=== PATIENT | female | born 1990 | race Caucasian/White ===

== ENCOUNTER 2017-08-22 08:09 | Observation (INO) | payer BC, OTHER ==
[2017-08-22] VITALS (7 sets, daily range): BP systolic 109–139; BP diastolic 65–91; PULSE 73–112; RESP 12–18; TEMP 97.7–98.6; O2SAT 97–98
[~2017-08-22] VITALS: Ht 175.3 cm; Wt 65.0 kg
[~2017-08-22 08:09] MED LIST: LEXA20TA PO; PHEN12.5 PO; SERO50TA4 PO; Z.0.BCPILL PO
[2017-08-22] MEDS ORDERED: SODIUM CHLORIDE 0.9% FLUSH 10 ML FLUSH IVF PRN (08:45)
[2017-08-22] MEDS ORDERED: SODIUM CHLOR 0.9% 1000 ML INJ 1,000 ML IV ONE (08:45)
--- NOTE | 2017-08-22 08:53 | PD ---
HPI Chief Complaint: OD/ Ingestion Time Seen by Provider: 08:40 Travel History International Travel<30 days: No Contact w/Intl Traveler<30days: No Traveled to known affect area: No History of Present Illness HPI 26-year-old female states that she was drinking last night and relapsed on heroin. She states that she was told that she had received medication because she almost . She states she was not trying to hurt herself. She states she has not used for 4 years. She denies any other concurrent complaints at this time other than feeling a little drowsy. History is limited given patient does not recall full event. PFSH Past Medical History Narrative Medical Medical history confirmed with patient Depression: Yes Cardiovascular Problems: Yes Diminished Hearing: No Gastrointestinal Disorders: Yes (stomach pain of unknown origin) Headaches: Yes Hepatitis: Yes (C, treated) Immunizations Current: Yes Tetanus Vaccination: Unknown ?: Not LMP: 08/08/17 Menopausal: No : 0 Past Surgical History Narrative Surgical Surgical history confirmed with patient Oral Surgery: Yes (WISDOM TEETH) Tonsillectomy: Yes Social History Narrative Social History Social history confirmed with patient Alcohol Use: Yes (daily, 6 beers) Tobacco Use: No Substance Use: Yes (heroin, cocaine) Allergies-Medications (Allergen,Severity, Reaction): Coded Allergies: penicillin G (Unverified Allergy, Mild, HIVES, VOMITING, 10/19/16) Reported Meds & Prescriptions Reported Meds & Active Scripts Active Phenergan (Promethazine HCl) 12.5 Mg Tab 12.5 Mg PO Q6H PRN Reported Seroquel XR 50 mg (Quetiapine Fumarate) 50 Mg Tab 50 Mg PO DAILY Control Pills (Miscellaneous Medication) Tab 1 Tab PO DAILY Lexapro (Escitalopram Oxalate) 20 Mg Tab 20 Mg PO DAILY Review of Systems ROS Limitations: Other: (Drowsy) Except as stated in HPI: all other systems reviewed are Neg Physical Exam Exam Limitations: Poor Historian Narrative GENERAL: 26-year-old female in no apparent distress SKIN: Focused skin assessment warm/dry. HEAD: Atraumatic. Normocephalic. EYES: Pupils pinpoint bilaterally. No scleral icterus. No injection or drainage. ENT: No nasal bleeding or discharge. Mucous membranes pink and moist. NECK: Trachea midline. CARDIOVASCULAR: Tachycardic rate and regular rhythm RESPIRATORY: No accessory muscle use. Clear to auscultation. Breath sounds equal bilaterally. GASTROINTESTINAL: Abdomen soft, non-tender, nondistended. MUSCULOSKELETAL: No obvious deformities. No clubbing. No cyanosis. NEUROLOGICAL: Eyes spontaneously open. Motor grossly within normal limits. Slurred speech Data Data Last Documented VS Vital Signs Date Time Temp Pulse Resp B/P (MAP) Pulse Ox O2 Delivery O2 Flow Rate FiO2 08/22/17 09:18 102 12 138/89 (105) 98 Room Air 08/22/17 08:16 98.6 Orders Orders Electrocardiogram (08/22/17 08:37) Complete Blood Count With Diff (08/22/17 08:37) Comprehensive Metabolic Panel (08/22/17 08:37) Iv Access Insert/Monitor (08/22/17 08:37) Ed Urine Pregnancytest Poc (08/22/17 08:37) Urinalysis - C+S If Indicated (08/22/17 08:37) Alcohol (Ethanol) (08/22/17 08:40) Drug Screen, Random Urine (08/22/17 08:40) Sodium Chloride 0.9% Flush (Ns Flush) (08/22/17 08:45) Salicylates (Aspirin) (08/22/17 08:44) Tylenol (Acetaminophen) (08/22/17 08:44) Sodium Chlor 0.9% 1000 Ml Inj (Ns 1000 M (08/22/17 08:45) Lactic Acid (08/22/17 08:44) Naloxone Inj (Narcan Inj) (08/22/17 09:00) Admit Order (Ed Use Only) (08/22/17 11:19) Place In Observation (08/22/17 ) Vital Signs (Adult) Q4H (08/22/17 11:18) Activity Oob With Assistance (08/22/17 11:18) Dietetics Teacher / Telemetry .CONTINUOUS (08/22/17 11:18) Intake + Output HOLLY.QSHIFT (08/22/17 11:18) Diet Regular Basic (08/22/17 Lunch) Sodium Chlor 0.9% 1000 Ml Inj (Ns 1000 M (08/22/17 11:18) Sodium Chloride 0.9% Flush (Ns Flush) (08/22/17 11:30) Sodium Chloride 0.9% Flush (Ns Flush) (08/22/17 21:00) Comprehensive Metabolic Panel (08/23/17 06:00) Complete Blood Count With Diff (08/23/17 06:00) Case Management Consult (08/22/17 11:18) Scd Bilateral/Knee High HOLLY.BID (08/22/17 11:18) Naloxone Inj (Narcan Inj) (08/22/17 11:30) Magnesium Hydroxide Liq (Milk Of Magnesi (08/22/17 11:30) Sennosides (Senokot) (08/22/17 11:30) Bisacodyl Supp (Dulcolax Supp) (08/22/17 11:30) Lactulose Liq (Lactulose Liq) (08/22/17 11:30) Labs Laboratory Tests Test 08/22/17 08:45 08/22/17 08:50 08/22/17 09:16 White Blood Count 9.2 TH/MM3 Red Blood Count 4.23 MIL/MM3 Hemoglobin 13.0 GM/DL Hematocrit 38.2 % Mean Corpuscular Volume 90.5 FL Mean Corpuscular Hemoglobin 30.7 PG Mean Corpuscular Hemoglobin Concent 33.9 % Red Cell Distribution Width 12.4 % Platelet Count 207 TH/MM3 Mean Platelet Volume 7.9 FL Neutrophils (%) (Auto) 87.5 % Lymphocytes (%) (Auto) 7.6 % Monocytes (%) (Auto) 3.9 % Eosinophils (%) (Auto) 0.7 % Basophils (%) (Auto) 0.3 % Neutrophils # (Auto) 8.1 TH/MM3 Lymphocytes # (Auto) 0.7 TH/MM3 Monocytes # (Auto) 0.4 TH/MM3 Eosinophils # (Auto) 0.1 TH/MM3 Basophils # (Auto) 0.0 TH/MM3 CBC Comment DIFF FINAL Differential Comment Blood Urea Nitrogen 11 MG/DL Creatinine 0.93 MG/DL Random Glucose 131 MG/DL Total Protein 7.3 GM/DL Albumin 3.7 GM/DL Calcium Level 8.2 MG/DL Alkaline Phosphatase 71 U/L Aspartate Amino Transf (AST/SGOT) 48 U/L Alanine Aminotransferase (ALT/SGPT) 33 U/L Total Bilirubin 0.2 MG/DL Sodium Level 144 MEQ/L Potassium Level 3.9 MEQ/L Chloride Level 111 MEQ/L Carbon Dioxide Level 23.9 MEQ/L Anion Gap 9 MEQ/L Estimat Glomerular Filtration Rate 73 ML/MIN Salicylates Level LESS THAN 1.7 MG/DL Acetaminophen Level LESS THAN 2.0 MCG/ML Ethyl Alcohol Level 31 MG/DL Lactic Acid Level 1.5 mmol/L Urine Color YELLOW Urine Turbidity HAZY Urine pH 5.0 Urine Specific [place] 1.010 Urine Protein 30 mg/dL Urine Glucose (UA) >=500 mg/dL Urine Ketones NEG mg/dL Urine Occult Blood NEG Urine Nitrite NEG Urine Bilirubin NEG Urine Urobilinogen LESS THAN 2 mg/dL Urine Leukocyte Esterase NEG Urine WBC 1 /hpf Urine Squamous Epithelial Cells 1 /hpf Urine Hyaline Casts 7 /lpf Microscopic Urinalysis Comment CULT NOT INDICATED Urine Opiates Screen POS Urine Barbiturates Screen NEG Urine Amphetamines Screen NEG Urine Benzodiazepines Screen NEG Urine Cocaine Screen POS Urine Cannabinoids Screen NEG MDM Medical Decision Making Medical Screen Exam Complete: Yes Emergency Medical Condition: Yes Medical Record Reviewed: Yes (Past history confirmed) Interpretation(s) CBC & BMP Diagram 08/22/17 08:45 Total Protein 7.3, Albumin 3.7, Calcium Level 8.2 L, Alkaline Phosphatase 71, Aspartate Amino Transf (AST/SGOT) 48 H, Alanine Aminotransferase (ALT/SGPT) 33, Total Bilirubin 0.2 Differential Diagnosis Overdose, coingestion, electrolyte abnormality Narrative Course We will check blood work and dose with IV fluids and reevaluate 9 am patient getting less responsive, will dose with 0.4 mg of Narcan and follow patient will need to be monitored further in the hospital given need for repeat dose, patient agrees to plan Physician Communication Physician Communication dr newell agrees to admit Diagnosis Primary Impression: Heroin overdose Qualified Codes: T40.1X1A - Poisoning by heroin, accidental (unintentional), initial encounter Admitting Information Admitting Physician Requests: Observation Yaritza Morocho MD Aug 22, 2017 08:53
[2017-08-22 08:54] LABS: AUTOMATED NEUTROPHIL # 8.1 TH/MM3 (1.8-7.7); BASOPHIL % 0.3 % (0.0-2.0); EOSINOPHIL # 0.1 TH/MM3 (0-0.4); EOSINOPHIL % 0.7 % (0.0-4.0); HEMATOCRIT 38.2 % (35.0-46.0); LYMPH % 7.6 % (9.0-44.0); LYMPHOCYTE # 0.7 TH/MM3 (1.0-4.8); MEAN CELL VOLUME 90.5 FL (80.0-100.0); MEAN CORPUSCULAR HEMOGLOBIN 30.7 PG (27.0-34.0); MEAN CORPUSCULAR HGB CONC 33.9 % (32.0-36.0); MEAN PLATELET VOLUME 7.9 FL (7.0-11.0); MONO % 3.9 % (0.0-8.0); MONOCYTE # 0.4 TH/MM3 (0-0.9); NEUT % 87.5 % (16.0-70.0); PLATELET COUNT 207 TH/MM3 (150-450); RED BLOOD COUNT 4.23 MIL/MM3 (4.00-5.30); RED CELL DISTRIBUTION WIDTH 12.4 % (11.6-17.2); WHITE BLOOD COUNT 9.2 TH/MM3 (4.0-11.0)
[2017-08-22] MEDS ORDERED: NALOXONE HCL 0.4 MG/ML AMP IV PUSH ONE (09:00)
[2017-08-22 09:34] LABS: ALBUMIN 3.7 GM/DL (3.4-5.0); AST (GOT) 48 U/L (15-37); BICARBONATE 23.9 MEQ/L (21.0-32.0); BLOOD UREA NITROGEN 11 MG/DL (7-18); CALCIUM 8.2 MG/DL (8.5-10.1); CHLORIDE 111 MEQ/L (98-107); CREATININE 0.93 MG/DL (0.50-1.00); GLOMERULAR FILTRATION RATE 73 ML/MIN (>89); GLUCOSE,RANDOM 131 MG/DL (74-106); SODIUM (NA) 144 MEQ/L (136-145)
[2017-08-22 09:36] LABS: ALT (GPT) 33 U/L (10-53)
[2017-08-22 09:38] LABS: ALKALINE PHOSPHATASE 71 U/L (45-117); TOTAL BILIRUBIN ADULT 0.2 MG/DL (0.2-1.0); TOTAL PROTEIN 7.3 GM/DL (6.4-8.2)
[2017-08-22 09:44] LABS: BILIRUBIN, URINE NEG (NEG); BLOOD, URINE NEG (NEG); GLUCOSE,URINE >=500 mg/dL (NEG); HYALINE CAST, URINE 7 /lpf (RARE); KETONE, URINE NEG (NEG); NITRITE,URINE NEG (NEG); SQUAMOUS EPITHELIAL CELL URINE 1 /hpf (0-5); URINE COLOR YELLOW (YELLW/STRAW); URINE LEUKOCYTE ESTERASE NEG (NEG)
[2017-08-22] MEDS ORDERED: SODIUM CHLOR 0.9% 1000 ML INJ 1,000 ML IV SCH (11:18)
[2017-08-22] MEDS ORDERED: LACTULOSE SYRUP 20 GM/30 ML CUP PO PRN (11:30)
[2017-08-22] MEDS ORDERED: NALOXONE HCL 0.4 MG/ML AMP IV PUSH PRN (11:30)
[2017-08-22] MEDS ORDERED: SENNOSIDES 8.6 MG TAB PO PRN (11:30)
[2017-08-22] MEDS ORDERED: MAGNESIUM HYDROXIDE SUSP 30 ML CUP PO PRN (11:30)
[2017-08-22] MEDS ORDERED: BISACODYL 10 MG SUPP RECTAL PRN (11:30)
[2017-08-22] MEDS ORDERED: SODIUM CHLORIDE 0.9% FLUSH 10 ML FLUSH IV FLUSH PRN (11:30)
--- NOTE | 2017-08-22 13:57 | HHI.HP ---
HPI Service [facility] Primary Care Physician Unknown Admission Diagnosis overdose Diagnoses: Travel History International Travel<30 Days: No Contact w/Intl Traveler <30 Da: No Traveled to Known Affected Are: No History of Present Illness 26-year-old female with a history of heroin abuse who presents status post overdose, brought in by EMS. She says she was drinking last night, used cocaine and wanted heroin to treat the side effects of cocaine. Unfortunately she overdosed, requiring Narcan. She reportedly received 2 mg of Narcan, however was found to be somnolent subsequently. She received another 0.4 mg of Narcan with improvement. She says she feels very tired, however denies any chest pain, shortness of breath. She did have some nausea but no vomiting. Says she felt fine prior to this episode. She says she will stop using narcotics. Patient denies that she was trying to hurt herself. Denies suicidal ideation Review of Systems Except as stated in HPI: all other systems reviewed are Neg Past Family Social History Past Medical History Depression Chronic headaches Hepatitis C status post curative treatment Past Surgical History Tonsillectomy Reported Medications Reported Meds & Active Scripts Active Phenergan (Promethazine HCl) 12.5 Mg Tab 12.5 Mg PO Q6H PRN Reported Seroquel XR 50 mg (Quetiapine Fumarate) 50 Mg Tab 50 Mg PO DAILY Control Pills (Miscellaneous Medication) Tab 1 Tab PO DAILY Lexapro (Escitalopram Oxalate) 20 Mg Tab 20 Mg PO DAILY Allergies: Coded Allergies: penicillin G (Unverified Allergy, Mild, HIVES, VOMITING, 10/19/16) Family History Mother with hypertension. Father with pulmonary fibrosis, lung transplant Social History Patient sleeps using a nicotine pen vapor. She drinks about 6 beers per day about 5 times per week. Denies any alcohol withdrawal. Heroin, cocaine use. Physical Exam Vital Signs Vital Signs Date Time Temp Pulse Resp B/P (MAP) Pulse Ox O2 Delivery O2 Flow Rate FiO2 08/22/17 13:42 97.7 74 18 126/68 (87) 97 6/19/18 13:08 08/22/17 12:11 86 16 139/91 (107) 97 Room Air 08/22/17 09:18 102 12 138/89 (105) 98 Room Air 08/22/17 08:22 112 08/22/17 08:16 98.6 112 17 131/84 (100) 98 Physical Exam GENERAL: This is a well-nourished, well-developed patient, in no apparent distress. Somewhat, wakes up for exam. Oriented 3. SKIN: No rashes, ecchymoses or lesions. Cool and dry. HEAD: Atraumatic. Normocephalic. No temporal or scalp tenderness. EYES: Pupils equal round and reactive. Extraocular motions intact. No scleral icterus. No injection or drainage. ENT: Nose without bleeding, purulent drainage or septal hematoma. Throat without erythema, tonsillar hypertrophy or exudate. Uvula midline. Airway patent. NECK: Trachea midline. No JVD or lymphadenopathy. Supple, nontender, no meningeal signs. CARDIOVASCULAR: Regular rate and rhythm without murmurs, gallops, or rubs. RESPIRATORY: Clear to auscultation. Breath sounds equal bilaterally. No wheezes , rales, or rhonchi. GASTROINTESTINAL: Abdomen soft, non-tender, nondistended. No hepato-splenomegaly , or palpable masses. No guarding. MUSCULOSKELETAL: Extremities without clubbing, cyanosis, or edema. No joint tenderness, effusion, or edema noted. No calf tenderness. Negative Homans sign bilaterally. NEUROLOGICAL: Somnolent, wakes up for exam. Cranial nerves II through XII intact. Motor and sensory grossly within normal limits. Five out of 5 muscle strength in all muscle groups. Normal speech. Laboratory Laboratory Tests Test 08/22/17 08:45 08/22/17 08:50 08/22/17 09:16 White Blood Count 9.2 Red Blood Count 4.23 Hemoglobin 13.0 Hematocrit 38.2 Mean Corpuscular Volume 90.5 Mean Corpuscular Hemoglobin 30.7 Mean Corpuscular Hemoglobin Concent 33.9 Red Cell Distribution Width 12.4 Platelet Count 207 Mean Platelet Volume 7.9 Neutrophils (%) (Auto) 87.5 Lymphocytes (%) (Auto) 7.6 Monocytes (%) (Auto) 3.9 Eosinophils (%) (Auto) 0.7 Basophils (%) (Auto) 0.3 Neutrophils # (Auto) 8.1 Lymphocytes # (Auto) 0.7 Monocytes # (Auto) 0.4 Eosinophils # (Auto) 0.1 Basophils # (Auto) 0.0 CBC Comment DIFF FINAL Differential Comment Blood Urea Nitrogen 11 Creatinine 0.93 Random Glucose 131 Total Protein 7.3 Albumin 3.7 Calcium Level 8.2 Alkaline Phosphatase 71 Aspartate Amino Transf (AST/SGOT) 48 Alanine Aminotransferase (ALT/SGPT) 33 Total Bilirubin 0.2 Sodium Level 144 Potassium Level 3.9 Chloride Level 111 Carbon Dioxide Level 23.9 Anion Gap 9 Estimat Glomerular Filtration Rate 73 Salicylates Level LESS THAN 1.7 Acetaminophen Level LESS THAN 2.0 Ethyl Alcohol Level 31 Lactic Acid Level 1.5 Urine Color YELLOW Urine Turbidity HAZY Urine pH 5.0 Urine Specific [place] 1.010 Urine Protein 30 Urine Glucose (UA) >=500 Urine Ketones NEG Urine Occult Blood NEG Urine Nitrite NEG Urine Bilirubin NEG Urine Urobilinogen LESS THAN 2 Urine Leukocyte Esterase NEG Urine WBC 1 Urine Squamous Epithelial Cells 1 Urine Hyaline Casts 7 Microscopic Urinalysis Comment CULT NOT INDICATED Urine Opiates Screen POS Urine Barbiturates Screen NEG Urine Amphetamines Screen NEG Urine Benzodiazepines Screen NEG Urine Cocaine Screen POS Urine Cannabinoids Screen NEG Result Diagram: 08/22/1745 08/22/1745 Caprini VTE Risk Assessment Caprini VTE Risk Assessment: No/Low Risk (score <= 1) Caprini Risk Assessment Model Point Value = 1 Point Value = 2 Point Value = 3 Point Value = 5 Age 41-60 Minor surgery BMI > 25 kg/m2 Swollen legs Varicose veins or History of unexplained or recurrent spontaneous Oral contraceptives or hormone replacement Sepsis (< 1 month) Serious lung disease, including pneumonia (< 1 month) Abnormal pulmonary function Acute myocardial infarction Congestive heart failure (< 1 month) History of inflammatory bowel disease Medical patient at bed rest Age 61-74 Arthroscopic surgery Major open surgery (> 45 min) Laparoscopic surgery (> 45 min) Malignancy Confined to bed (> 72 hours) Immobilizing plaster cast Central venous access Age >= 75 History of VTE Family history of VTE Factor V Leiden Prothrombin [id number] Lupus anticoagulant Anticardiolipin antibodies Elevated serum homocysteine Heparin-induced thrombocytopenia Other congenital or acquired thrombophilia Stroke (< 1 month) Elective arthroplasty Hip, pelvis, or leg fracture Acute spinal cord injury (< 1 month) Prophylaxis Regimen Total Risk Factor Score Risk Level Prophylaxis Regimen 0-1 Low Early ambulation 2 Moderate Order ONE of the following: *Sequential Compression Device (SCD) *Heparin 5000 units SQ BID 3-4 Higher Order ONE of the following medications: *Heparin 5000 units SQ TID *Enoxaparin/Lovenox 40 mg SQ daily (WT < 150 kg, CrCl > 30 mL/min) *Enoxaparin/Lovenox 30 mg SQ daily (WT < 150 kg, CrCl > 10-29 mL/min) *Enoxaparin/Lovenox 30 mg SQ BID (WT < 150 kg, CrCl > 30 mL/min) AND/OR *Sequential Compression Device (SCD) 5 or more Highest Order ONE of the following medications: *Heparin 5000 units SQ TID (Preferred with Epidurals) *Enoxaparin/Lovenox 40 mg SQ daily (WT < 150 kg, CrCl > 30 mL/min) *Enoxaparin/Lovenox 30 mg SQ daily (WT < 150 kg, CrCl > 10-29 mL/min) *Enoxaparin/Lovenox 30 mg SQ BID (WT < 150 kg, CrCl > 30 mL/min) AND *Sequential Compression Device (SCD) Assessment and Plan Assessment and Plan //Heroin overdose Requiring 2 doses of Narcan. = Narcan half-life can be up to 8 hours. = Still very somnolent. Will monitor. If stable by this evening, can likely go home. Patient advised on cessation. //Alcoholism. Patient advised on cessation.. Denies history of withdrawal. CIWA protocol while here. //Depression. Continue home medications when reconciled. Discussed Condition With Patient, ED physician. Anselmo Xavier MD Aug 22, 2017 13:57
[2017-08-22] MEDS ORDERED: LORazepam 2 MG TAB PO PRN (14:00)
[2017-08-22] MEDS ORDERED: LORazepam 1 MG TAB PO PRN (14:00)
[2017-08-22] MEDS ORDERED: LORazepam 2 MG/ML VIAL IV PUSH PRN ×4 (14:00)
[2017-08-22] MEDS ORDERED: FLUMAZENIL 0.5 MG/5 ML VIAL IV PUSH PRN (14:00)
--- NOTE | 2017-08-22 17:03 | EKG ---
Date Performed: 08/22/2017 Time Performed: 08:39:57 PTAGE: 26 years EKG: SINUS TACHYCARDIA POSSIBLE RIGHT VENTRICULAR CONDUCTION DELAY ABNORMAL RHYTHM ECG PREVIOUS TRACING : 10/07/2015 20.42 Since the previous tracing, no significant change noted DOCTOR: Kaley Sood Interpretating Date/Time 08/22/2017 17:00:56
[2017-08-22] MEDS ORDERED: SODIUM CHLORIDE 0.9% FLUSH 10 ML FLUSH IV FLUSH SCH (21:00)
== END 2017-08-22 18:43 | disposition home or self-care (01) ==
LOC: NEPE 08:09 → NEDA 11:20 → NEPGCP 13:24
PROVIDERS: ADMIT Hospitalist; ATTEND Hospitalist
DX: T40.1X1A Poisoning by heroin, accidental (unintentional), initial encounter (principal); F11.10 Opioid abuse, uncomplicated; F32.9 Major depressive disorder, single episode, unspecified; R51 Headache; R10.9 Unspecified abdominal pain; B19.20 Unspecified viral hepatitis C without hepatic coma; F14.10 Cocaine abuse, uncomplicated; Y90.1 Blood alcohol level of 20-39 mg/100 ml; R11.0 Nausea; F10.20 Alcohol dependence, uncomplicated; R94.31 Abnormal electrocardiogram [ECG] [EKG]
CPT/HCPCS: 80053; 80307; 81001; 83605; 84703; 85025; 93005; 96361; 96374; 99285; G0378; J2310; J7030